=== PATIENT | female | born 1990 | race Caucasian/White ===

== ENCOUNTER 2022-04-27 09:41 | Emergency (ER) | payer OTHER, SELFPAY ==
[2022-04-27 10:50] VITALS: BP 141/77; PULSE 131; RESP 19; TEMP 37.8; O2SAT 99; BMI 36.8
--- NOTE | 2022-04-27 10:55 | EXP.UTC ---
Discharge Plan Disposition Patient Disposition: Home, Self-Care Condition: Good Prescriptions Prescriptions: New azithromycin [Zithromax] 250 mg tablet 250 mg PO UD DOSE PK Qty: 6 0RF Rx Instructions: Take two (2) tablets today, then one (1) tablet days #2 thru #5 benzonatate [benzonatate] 100 mg capsule 100 mg PO TIDP PRN (Reason: Cough) Qty: 30 0RF methylprednisolone 4 mg Tablets,Dose Pack 4 mg PO DIRECTED Qty: 21 0RF Referrals Follow up/Referrals: Kathy Aldana MD [Primary Care Provider] - See instructions Activity Restrictions/Add. Instructions Additional Instructions/Restrictions: Drink plenty of fluids. Take tylenol or ibuprofen for pain or fever. Take the medications as directed. Follow up with your regular doctor. GO TO THE ER FOR ANY WORSENING SYMPTOMS Clinical Impressions Clinical Impression: Acute bronchitis, Pharyngitis Stand Alone Forms Stand Alone Forms: Work/School Release Instructions Patient Instructions: DI for Pharyngitis/Tonsillopharyngitis -- Adult, DI for Acute Bronchitis Discharge ED Provider: Americo Max [facility] General Stated complaint: sore throat Time Seen by Provider: 04/27/22 10:55 History of Present Illness Provider Complaint: She states that for the past 2 days she has had worsening sinus congestion, chills, low grade fever and a cough. Related Data Previous Rx's Medication Instructions Recorded azithromycin 250 mg tablet 250 mg PO UD DOSE PK #6 tabs 04/27/22 (Zithromax) benzonatate 100 mg capsule 100 mg PO TIDP PRN Cough #30 caps 04/27/22 methylprednisolone 4 mg tablets in 4 mg PO DIRECTED #21 tabs 04/27/22 a dose pack Allergies Allergy/AdvReac Type Severity Reaction Status Date / Time tetracycline Allergy Verified 04/27/22 11:50 [facility] Disclaimer: The information contained in this section may have been updated after the patient was seen, as this information can be updated by other users. Social History Smoking Status: Never smoker alcohol intake: never current occupational status: employed Travel in the last 8 weeks: None ROS Obtained: Yes All systems reviewed & no additional complaints except as documented Constitutional Constitutional: Reports chills and Reports fever(s) Eyes Eyes: Denies eye discharge ENT Ears, Nose, Mouth, and Throat: Reports as per HPI Cardiovascular Cardiovascular: Denies chest pain Respiratory Respiratory: Denies chest congestion and Reports cough Gastrointestinal Gastrointestingal: Reports nausea; Denies abdominal pain, constipation, cramping, diarrhea or vomiting Musculoskeletal Musculoskeletal: Denies arthralgias Integumentary/Breasts Skin/Breast: Denies rash Neurologic Neurologic: Denies paresthesias Physical Exam General General appearance: alert and in no apparent distress Head Head exam: atraumatic, normocephalic and normal inspection Eye Eye exam: Present normal appearance, PERRL and EOMI ENT ENT exam: Present mucous membranes moist and normal external ear exam Expanded ENT Exam TM/Canal exam: Bilateral TM: erythema and bulging Nose exam: Absent sinus tenderness Mouth exam: Present normal external inspection; Absent drooling Teeth exam: Present normal inspection Throat exam: Present tonsillar erythema, tonsillomegaly and tonsillar exudate Neck Neck exam: Present normal inspection, full ROM and trachea midline; Absent tenderness, meningismus or lymphadenopathy Chest Chest inspection: Present normal inspection and symmetric chest wall rise; Absent tenderness Respiratory Respiratory exam: Present normal lung sounds bilaterally; Absent respiratory distress, wheezes or stridor Cardiovascular Cardiovascular exam: Present regular rate and normal rhythm; Absent systolic murmur or diastolic murmur Abdominal Exam Abdominal exam: Present soft and normal bowel sounds; Absent distention, tenderness, guarding,
[2022-04-27 11:20] LABS: UTC Strep Screen (Rapid) Negative (Negative)
[2022-04-27 11:47] LABS: UTC Influenza A Antigen Negative (Negative); UTC Influenza B Antigen Negative (Negative)
[2022-04-27 12:00] VITALS: BP 141/77; PULSE 131; RESP 19; TEMP 37.8; O2SAT 99
== END 2022-04-27 12:00 | disposition home or self-care (01) ==
PROVIDERS: Emergency Provider Nurse Practitioner Family; PCP Family Medicine
DX: J20.9 Acute bronchitis, unspecified (principal)
CPT/HCPCS: 87804; 87880; 99212; 99213; G0463

== ENCOUNTER → 2023-03-26 16:35 | Outpatient (CLI) | payer OTHER, SELFPAY ==
[2023-03-26 17:30] LABS: Basophils % 0.4 % (0.1-2.0); Eosinophils # 0.3 K/mm3 (0.0-0.4); Eosinophils % 2.9 % (0.1-12.0); Hematocrit 37.4 % (37.0-47.0); Hemoglobin 12.2 g/dL (12.2-16.2); Lymphocytes # 2.1 K/mm3 (0.7-4.5); Lymphocytes % 23.3 % (10-50); Mean Corpuscular HGB Conc 32.5 g/dL (31.8-35.4); Mean Corpuscular Hemoglobin 26.1 pg (27.0-31.2); Mean Corpuscular Volume 80.4 fl (81-99); Mean Platelet Volume 8.3 fl (7.4-10.4); Monocytes # 0.4 K/mm3 (0.1-1.0); Monocytes % 4.7 % (1.7-9.3); Neutrophils # 6.2 K/mm3 (1.8-7.8); Neutrophils % 68.6 % (37.0-80.0); Platelet Count 562 K/mm3 (142-424); Red Blood Count 4.65 M/mm3 (4.20-5.40); Red Cell Distribution Width 15.8 % (11.5-17.5)
[2023-03-26 18:21] LABS: Hemoglobin A1C 6.2 % (4.0-6.0)
[2023-03-26 18:43] LABS: Alanine Aminotransferase 52 U/L (12-78); Albumin Level 4.3 g/dl (3.5-5.0); Albumin/Globulin Ratio 1.3 (1.1-1.8); Alkaline Phosphatase 117 U/L (38-126); Anion Gap 11.4 mEq/L (5-15); Aspartate Amino Transferase 42 U/L (14-36); Bilirubin,Total 0.4 mg/dl (0.2-1.3); Blood Urea Nitrogen 14 mg/dl (7-17); Carbon Dioxide 31 mmol/L (22.0-30.0); Chloride 96 mmol/L (98-107); Chol/HDL Ratio 6.4 (1-3.5); Cholesterol 290 mg/dl (140-200); Estimated Glomerular Filt Rate 96 ml/min (>60); GFR (African American) 117 ML/MIN (>60); Globulin 3.2 g/dL (1.3-3.2); Glucose 67 mg/dl (74-100); HDL Cholesterol 45 mg/dl (40-60); Potassium 4.4 mmoL/L (3.5-5.1); Sodium 134 mmol/L (136-145); Total Protein,Serum 7.5 g/dl (6.3-8.2); Triglycerides 359 mg/dl (30-150); VLDL Cholesterol 72 mg/dL (0-40)
[2023-03-26 18:54] LABS: Direct LDL Cholesterol 168.99 mg/dL (100-129)
== END ==
PROVIDERS: PCP Internal Medicine; Visit Provider Internal Medicine
DX: I10 Essential (primary) hypertension (principal); R73.02 Impaired glucose tolerance (oral); E78.5 Hyperlipidemia, unspecified
CPT/HCPCS: 80053; 80061; 83036; 85025

== ENCOUNTER 2023-04-18 18:41 | Emergency (ER) | payer OTHER, SELFPAY ==
[2023-04-18 19:28] VITALS: BP 128/86; PULSE 78; RESP 22; TEMP 37; O2SAT 96; BMI 41.8
--- NOTE | 2023-04-18 19:41 | EXP.UTC ---
Discharge Plan Disposition Patient Disposition: Home, Self-Care Condition: Good Prescriptions Prescriptions: New ondansetron 4 mg tablet,disintegrating 4 mg PO Q8H PRN (Reason: nausea and vomiting) Qty: 10 0RF No Action azithromycin [Zithromax] 250 mg tablet 250 mg PO UD DOSE PK Qty: 6 0RF Rx Instructions: Take two (2) tablets today, then one (1) tablet days #2 thru #5 benzonatate [benzonatate] 100 mg capsule 100 mg PO TIDP PRN (Reason: Cough) Qty: 30 0RF methylprednisolone 4 mg Tablets,Dose Pack 4 mg PO DIRECTED Qty: 21 0RF Referrals Follow up/Referrals: Wong Smith MD [Primary Care Provider] - See instructions Activity Restrictions/Add. Instructions Additional Instructions/Restrictions: Drink extra fluids with and between meals. If you have difficulty drinking, try very small amounts of water or suck on ice chips. ? Avoid fruit juices, as these do not replace minerals and can actually increase diarrhea. ? Children and adults can use sports drinks to replenish electrolytes. Younger children and infants should use products formulated for children, like oral rehydration solutions. ? Eat food in small amounts and let your stomach recover. ? Get lots of rest. You may feel tired or weak. ? No greasy or fried foods for the next 24-48 hours BRAT diet Bananas Rice Apples and [place] ? Make sure to drink plenty of liquids ? Return if needed ? Straight to ER if any life threatening symptoms ? Zofran as prescribed ? You was given an outpatient order for diarrhea panel, please collect specimen and bring back to outpatient lab then call back to the [facility] or follow up with family doctor for results ? Follow up with family doctor in the next 48-72 hours if no improvement or any worsening of symptoms *Monitor Temp, Over the counter Motrin or Tylenol as directed/as needed Tylenol every 4 hours and Motrin every 6 hours (as long as your family doctor has told you that you can take it) for fever or pain. and straight to ER if unable to lower temp less than 101.0 after medication given *Sleep elevated *Humidifier/Vaporizer Follow up IMMEDIATELY for new or worsening symptoms or no Noticeable improvement over the next 48-72 hours. 911 for difficulty breathing or swallowing You were tested for today for ?Upper Respiratory Panel with COVID19 your test result should be back in the next 24hours, you may check your results on the [facility] if you are COVID positive then you must Quarantine for 5 days Clinical Impressions Clinical Impression: Viral syndrome Stand Alone Forms Stand Alone Forms: Work/School Release Instructions Patient Instructions: DI for Viral Syndrome Discharge ED Provider: Lissett Davis [facility] General Stated complaint: upset stomach, diarrhea, vomiting Source of Information: Patient Time Seen by Provider: 04/18/23 19:41 Description of Symptoms (Recalled from Triage Doc. by RN): pt states that she woke up yesterday morning with body aches and chills which then led to a fever and diarrhea today HEENT Symptoms (Recalled from RN notes): Yes Resp Symptoms (Recalled from RN notes): Yes Skin Symptoms (Recalled from RN notes): No MS Symptoms (Recalled from RN notes): No Functional Status (Recalled from RN notes): wnl History of Present Illness Provider Complaint: Patient states that she started feeling bad yesterday with body aches, chills and feeling feverish States that today she has contiued with the body aches, chills and also had some diarrhea and N/V States that she feels like she may have the flu or something Related Data Previous Rx's Medication Instructions Recorded azithromycin 250 mg tablet 250 mg PO UD DOSE PK #6 tabs 04/27/22 (Zithromax) benzonatate 100 mg capsule 100 mg PO TIDP PRN Cough #30 caps 04/27/22 methylprednisolone 4 mg tablets in 4 mg PO DIRECTED #21 tabs 04/27/22 a dose pack ondansetron 4 mg disintegrating 4 mg PO Q8H PRN nausea and 04/18/23 tablet vomiting #10 tabs Allergies Allergy/AdvReac Type Severity Reaction Status Date / Time tetracycline Allergy Verified 04/27/22 11:50 Worker's Comp Is this a Worker's Comp case?: No [facility] Disclaimer: The information contained in this section may have been updated after the patient was seen, as this information can be updated by other users. Social History (Updated 04/27/22 @ 15:59 by Americo Max APRN) Smoking Status: Never smoker alcohol intake: never current occupational status: employed Travel in the last 8 weeks: None ROS Obtained: Yes All systems reviewed & no additional complaints except as documented and Yes Systems reviewed as appropriate & no additional complaints except as documented Constitutional Constitutional: Reports system reviewed and no additional complaints, except as documented, Reports as per HPI, Reports body ache, Reports chills and Reports fever(s) ENT Ears, Nose, Mouth, and Throat: Reports system reviewed and no additional complaints, except as documented and Reports as per HPI Cardiovascular Cardiovascular: Reports system reviewed and no additional complaints, except as documented and Reports as per HPI Respiratory Respiratory: Reports system reviewed and no additional complaints, except as documented and Reports as per HPI Gastrointestinal Gastrointestingal: Reports system reviewed and no additional complaints, except as documented, as per HPI, diarrhea and nausea Musculoskeletal Musculoskeletal: Reports system reviewed and no additional complaints, except as documented and Reports as per HPI Physical Exam General General appearance: alert and in no apparent distress ENT ENT exam: Present mucous membranes moist Respiratory Respiratory exam: Present normal lung sounds bilaterally; Absent respiratory distress or wheezes Cardiovascular Cardiovascular exam: Present regular rate, normal rhythm and tachycardia Abdominal Exam Abdominal exam: Present soft and normal bowel sounds; Absent distention or tenderness Neurological Exam Neurological exam: Present alert, oriented X3 and normal gait Medical Decision Making Hai Inquiry Pt receiving controlled substance: No Hai was queried for this patient: No Vital Signs: 04/18/23 19:28 Temperature 98.6 F Temperature Source Oral Pulse Rate [Right Brachial] 78 Respiratory Rate 22 Blood Pressure [Right Arm] 128/86 Blood Pressure Mean [Right Arm] 100 Blood Pressure Source [Right Arm] Automatic Cuff Blood Pressure Position [Right Arm] Sitting 02 Sat by Pulse Oximetry 119 H Lab Data Lab results reviewed: Yes I reviewed the patient's lab results. Medical Decision Narrative: Patient denies states that she just got off her period
[2023-04-18 19:47] LABS: UTC Influenza A Antigen Negative (Negative)
[2023-04-18 19:48] LABS: UTC Influenza B Antigen Negative (Negative)
[2023-04-18] MEDS: ONDANSETRON 4MG ODT 4 MG SL (19:57)
[2023-04-18 20:06] VITALS: BP 128/86; PULSE 78; RESP 22; TEMP 37; O2SAT 96
[2023-04-18 20:35] LABS: Adenovirus,PCR Not Detected (NotDetected); Coronavirus 19, PCR Not Detected (NotDetected); Coronavirus 229E Not Detected (NotDetected); Coronavirus NL63 Not Detected (NotDetected); Coronovirus HKU1,PCR Not Detected (NotDetected); Human Metapneumovirus Not Detected (NotDetected); Influenza A, PCR Not Detected (NotDetected); Influenza AH1, 2009 Not Detected (NotDetected); Influenza AH1, PCR Not Detected (NotDetected); Influenza AH3,PCR Not Detected (NotDetected); Influenza B, PCR Not Detected (NotDetected); Parainfluenza 1, PCR Not Detected (NotDetected); Parainfluenza 2, PCR Not Detected (NotDetected); Parainfluenza 3, PCR Not Detected (NotDetected); Parainfluenza 4, PCR Not Detected (NotDetected); Respiratory Syncytial Virus Not Detected (NotDetected); Rhinovirus/Enterovirus Not Detected (NotDetected)
[2023-04-19 07:48] LABS: Coronavirus OC43 Detected (NotDetected)
== END 2023-04-18 20:07 | disposition home or self-care (01) ==
PROVIDERS: Emergency Provider Nurse Practitioner; PCP Internal Medicine
DX: R11.2 Nausea with vomiting, unspecified (principal); B34.2 Coronavirus infection, unspecified; R19.7 Diarrhea, unspecified; R50.9 Fever, unspecified; M79.18 Myalgia, other site
CPT/HCPCS: 87581; 87632; 87635; 87798; 87804; 99212; 99214; G0463

== ENCOUNTER → 2023-06-25 15:46 | Outpatient (CLI) | payer OTHER, SELFPAY | LOC: SL 15:48 | PROVIDERS: PCP Internal Medicine; Visit Provider Internal Medicine | DX: G47.33 Obstructive sleep apnea (adult) (pediatric) (principal); G47.36 Sleep related hypoventilation in conditions classified elsewhere | CPT/HCPCS: G0399 ==

== ENCOUNTER 2023-07-13 16:38 | Outpatient (CLI) | payer OTHER, SELFPAY ==
[2023-07-13 18:42] LABS: Chloride 100 mmol/L (98-107); Sodium 136 mmol/L (136-145)
[2023-07-13 18:43] LABS: Potassium 4.8 mmoL/L (3.5-5.1)
[2023-07-13 18:45] LABS: Blood Urea Nitrogen 13 mg/dl (7-17); Estimated Glomerular Filt Rate 82 ml/min (>60); GFR (African American) 99 ML/MIN (>60)
[2023-07-13 18:46] LABS: Anion Gap 9.8 mEq/L (5-15); Calcium 9.2 mg/dl (8.4-10.2); Carbon Dioxide 31 mmol/L (22.0-30.0); Glucose 159 mg/dl (74-100)
[2023-07-13 18:57] LABS: Free T4 (Free Thyroxine) 1.67 ng/dl (0.78-2.19)
[2023-07-13 19:11] LABS: Thyroid Stimulating Hormone 0.89 uIU/mL (0.465-4.68)
== END 2023-07-13 23:59 ==
LOC: LAB.DROPOF 16:41
PROVIDERS: PCP Internal Medicine; Visit Provider Internal Medicine
DX: R60.9 Edema, unspecified (principal); I10 Essential (primary) hypertension; G47.33 Obstructive sleep apnea (adult) (pediatric); N39.0 Urinary tract infection, site not specified
CPT/HCPCS: 80048; 84439; 84443

== ENCOUNTER 2023-07-23 12:55 | Outpatient (CLI) | payer OTHER, SELFPAY ==
--- NOTE | 2023-07-23 12:58 | CA_ITS ---
APPROVED REPORT EXAM: Comprehensive 2D, Doppler, and color-flow Echocardiogram Sr. Operations Manager: Jiamie Blount RDCS Ht: 5 ft 8 in Wt: 294lbs BSA: 2.41 BP: 128/86 mmHg Indications: EDEMA SOA TDS SECONDARY TO BODY HABITUS M-Mode Dimensions RVDd 2.56 cm (0.9-2.6) LA Diam 3.58 cm (1.9-4.0) LVDd 5.88 cm (3.5-5.7) LVDs 3.79 cm (3.5-5.7) IVSd 0.94 cm (0.6-1.1) PWd 0.64 cm (0.6-1.1) EF (Teich) 64.20% FS 35.50% EDV (Teich) 171.90 mL ESV (Teich) 61.60 mL LV Diastology E Decel Time 253 (160-240 msec) E/A Ratio 1.3 Mitral Valve MV E Max Rolf. 66.0 (40-130 cm/s) MV A Velocity 51.0 (40-130 cm/s) E/A Ratio 1.31 MV PHT 74.0 ms Left Ventricle The left ventricle is normal size. The left ventricular systolic function is normal. The left ventricular ejection fraction is within the normal range. There is normal left ventricular wall thickness. There is normal LV segmental wall motion. The left ventricular diastolic function is normal. LVEF is 60%. Right Ventricle The right ventricle is normal size. The right ventricular systolic function is normal. Atria The left atrium size is normal. The right atrium size is normal. The interatrial septum is not well-visualized. Aortic Valve The aortic valve opens well. There is no aortic valvular stenosis. No aortic regurgitation is present. Mitral Valve The mitral valve is normal in structure. No evidence of mitral valve stenosis. There is no mitral valve regurgitation noted. Tricuspid Valve The tricuspid valve leaflets are thin and pliable. Trace tricuspid regurgitation. There is insufficient TR jet to estimate RVSP. Pulmonic Valve The pulmonary valve is normal in structure. Trace pulmonic regurgitation. Great Vessels The aortic root is normal in size. The ascending aorta is normal in size. The IVC is not well-visualized. Pericardium There is no pericardial effusion. Other Information Study Quality: Technically Difficult Conclusion Technically difficult study due to poor acoustic windows. Normal biventricular systolic function. No significant valvular stenosis or regurgitation. The patient was noted to be tachycardic during the acquisition of the study images. Electronically signed by : Loreto Reyes MD 07/24/2023 10:31:28
== END 2023-07-23 23:59 ==
LOC: RT 12:56
PROVIDERS: PCP Internal Medicine; Visit Provider Internal Medicine
DX: R06.09 Other forms of dyspnea (principal); R60.9 Edema, unspecified; G47.33 Obstructive sleep apnea (adult) (pediatric)
CPT/HCPCS: 93306

== ENCOUNTER 2023-11-26 22:03 | Emergency (ER) | payer OTHER, SELFPAY ==
[2023-11-26 22:04] VITALS: BP 147/86; PULSE 92; RESP 16; TEMP 37; O2SAT 97; BMI 42.1
--- NOTE | 2023-11-26 22:16 | ED_ITS ---
<Statement entered by David Walters MD - 11/28/23 22:43> I was consulted by the KHURRAM, and we discussed the complexity of the problems being addressed. I approved the treatment and management plan for this patient's care in the emergency department, thus performing a substantive portion of the medical decision making. David Walters MD, LISSA, FACEP Discharge Plan Disposition Patient Disposition: Home, Self-Care Condition: Good Prescriptions Prescriptions: New levofloxacin 500 mg tablet 500 mg PO DAILY 5 Days Qty: 5 0RF cephalexin 500 mg capsule 500 mg PO BID 5 Days Qty: 10 0RF No Action pravastatin 20 mg tablet PO Patient Comments: TAKE 1 TABLET BY MOUTH ONCE DAILY escitalopram oxalate 10 mg tablet PO Patient Comments: TAKE 1 TABLET BY MOUTH ONCE DAILY omeprazole 20 mg capsule,delayed release(DR/EC) PO Patient Comments: TAKE 1 CAPSULE BY MOUTH ONCE DAILY losartan 25 mg tablet PO Patient Comments: TAKE 1 TABLET BY MOUTH ONCE DAILY buspirone 5 mg tablet PO Patient Comments: TAKE 1 TABLET BY MOUTH THREE TIMES DAILY valacyclovir 1 gram tablet PO Patient Comments: TAKE 1 TABLET BY MOUTH ONCE DAILY cetirizine 10 mg tablet PO Patient Comments: TAKE 1 TABLET BY MOUTH ONCE DAILY furosemide 40 mg tablet 40 mg PO DAILY Qty: 30 2RF ondansetron 4 mg tablet,disintegrating 4 mg PO Q8H PRN (Reason: nausea and vomiting) Qty: 10 0RF Referrals Follow up/Referrals: Wong Smith MD [Primary Care Provider] - See instructions Cata Alonzo DPM [Staff Physician] - See instructions Activity Restrictions/Add. Instructions Additional Instructions/Restrictions: Please call in the morning to make an appointment with podiatry. Return to ER for any worsening signs or symptoms including fever chills increasing pain numbness tingling etc. Clinical Impressions Clinical Impression: Puncture wound Instructions Patient Instructions: DI for Puncture Wound Print Language Print Language: [place] Discharge ED Provider: David Walters General Adult HPI General Chief complaint: Wound/Laceration Stated complaint: AO 11/26/231944 stepped on suzanne nail left foot Time Seen by Provider: 11/26/23 22:29 History of Present Illness HPI narrative: She reportsPatient left foot injury. Patient stepped in a nail through her rubber soled shoe. She removed the nail herself. Some pain but no numbness tingling bleeding etc. Related Data Home Medications ?Medication ?Instructions ?Recorded ?Confirmed buspirone 5 mg tablet mg PO 10/03/23 cetirizine 10 mg tablet mg PO 10/03/23 escitalopram oxalate 10 mg tablet mg PO 10/03/23 losartan 25 mg tablet mg PO 10/03/23 omeprazole 20 mg capsule,delayed mg PO 10/03/23 release pravastatin 20 mg tablet mg PO 10/03/23 valacyclovir 1 gram tablet mg PO 10/03/23 Previous Rx's ?Medication ?Instructions ?Recorded ondansetron 4 mg disintegrating 4 mg PO Q8H PRN nausea and 04/18/23 tablet vomiting #10 tabs furosemide 40 mg tablet 40 mg PO DAILY #30 tabs 11/16/23 cephalexin 500 mg capsule 500 mg PO BID 5 days #10 caps 11/26/23 levofloxacin 500 mg tablet 500 mg PO DAILY 5 days #5 tabs 11/26/23 Allergies Allergy/AdvReac Type Severity Reaction Status Date / Time tetracycline Allergy Verified 10/03/23 16:05 [facility] Disclaimer: The information contained in this section may have been updated after the patient was seen, as this information can be updated by other users. Social History Smoking Status: Never smoker alcohol intake: never current occupational status: employed Travel in the last 8 weeks: None ROS Obtained: Yes Systems reviewed as appropriate & no additional complaints except as documented Physical Exam General General appearance: alert Respiratory Respiratory exam: Present normal lung sounds bilaterally Cardiovascular Cardiovascular exam: Present regular rate and normal rhythm Extremities Exam Extremities exam: Present normal inspection Expanded Lower Extremity Exam Left: Bottom foot image: 2 1. 2 2 punctures proximal to the MTP joint of the fourth toe. No edema or ecchymosis noted. Neurological Exam Neurological exam: Present alert and oriented X3 Lymphatic Lymphatic Findings: no adenopathy Medical Decision Making Hai Inquiry Pt receiving controlled substance: No Vital Signs: 11/26/23 22:04 Temperature 98.6 F Temperature Source Oral Pulse Rate [Left] 92 H Respiratory Rate 16 Blood Pressure [Right Arm] 147/86 H Blood Pressure Mean [Right Arm] 106 02 Sat by Pulse Oximetry 97 Oxygen Delivery Method Room Air Orders (Tests/Meds): ED MEDICATIONS Discontinued Medications Generic Name Dose Route Start Last Admin Trade Name Freq PRN Reason Stop Dose Admin Cephalexin HCl 500 mg 11/26/23 22:19 11/26/23 22:35 Cephalexin 500mg Capsule PO 11/26/23 22:20 500 mg ONCE ONE Administration Levofloxacin 500 mg 11/26/23 22:19 11/26/23 22:35 Levofloxacin 500mg Tab PO 11/26/23 22:20 500 mg ONCE ONE Administration Tetanus/Reduced Diphtheria/Acell Pertussis 0.5 ml 11/26/23 22:19 11/26/23 22:33 Tet/Diphth/Pert-Adult 0.5ml Syringe IM 11/26/23 22:20 0.5 ml .ONCE ONE Administration ORDERS Category Date Time Status Foot XR left 2 views [XR foot LT 2V] Stat Exams 11/26/23 22:19 Taken Medical Decision Narrative: In summary patient is a 33-year-old female who presents to the emergency department for evaluation of stepping on a nail. Patient is dynamically stable upon arrival, afebrile. Physical exam shows 2 puncture wounds on the plantar surface of her left foot just proximal to the fourth MTP joint. No bony deformity noted. Patient neurovascular tact distally. No ecchymosis noted. No edema. No erythema. Differential diagnosis includes simple puncture versus bony involvement. Initial workup will be conducted with plain film x-rays. Initial interventions include Keflex Levaquin p.o. Tdap. Initial workup reviewed by me and her informal review of her plain film x-rays by myself shows no acute bony involvement.. Given this patient is appropriate for discharge with follow-up with podiatry and prescriptions sent to her pharmacy for Levaquin and Keflex. Critical Care Critical Care Time Critical Care Time: No
--- NOTE | 2023-11-26 22:19 | XR_ITS ---
PROCEDURE INFORMATION: Exam: XR Left Foot Exam date and time: 11/26/2023 10:18 PM Age: 33 years old Clinical indication: Pain; Foot; Left; Additional info: Stepped on a nail TECHNIQUE: Imaging protocol: Radiologic exam of the left foot. Views: 1 or 2 views. COMPARISON: No relevant prior studies available. FINDINGS: Bones/joints: There is a plantar calcaneal enthesophyte. No acute osseous injury. Soft tissues: There is some soft tissue swelling. No radiopaque foreign body is seen. IMPRESSION: No radiopaque foreign body or acute osseous abnormality.
[2023-11-26] MEDS: TET/DIPHTH/PERT-ADULT 0.5ML SYRINGE 0.5 ML IM (22:33)
[2023-11-26] MEDS: levoFLOXacin 500MG TAB 500 MG PO (22:35)
[2023-11-26] MEDS: cephALEXin 500MG CAPSULE 500 MG PO (22:35)
[2023-11-26 23:24] VITALS: BP 119/57; PULSE 92; RESP 20; TEMP 36.7; O2SAT 98
== END 2023-11-26 23:25 | disposition home or self-care (01) ==
PROVIDERS: Emergency Provider Student in an Organized Health Care Education/Training Program; PCP Internal Medicine
DX: S91.332A Puncture wound without foreign body, left foot, initial encounter (principal); W45.0XXA Nail entering through skin, initial encounter; Z23 Encounter for immunization
CPT/HCPCS: 73620; 90471; 90715; 99283

== ENCOUNTER 2024-01-06 16:36 | Emergency (ER) | payer SELFPAY ==
[2024-01-06 17:45] VITALS: BP 141/73; PULSE 94; RESP 20; TEMP 37; O2SAT 96; BMI 42.4
--- NOTE | 2024-01-06 18:00 | EXP.UTC ---
Discharge Plan Disposition Patient Disposition: Home, Self-Care Condition: Good Prescriptions Prescriptions: New amoxicillin-pot clavulanate 875-125 mg Tablet 1 tab PO Q12H Qty: 14 0RF fluticasone propionate [Flonase Allergy Relief] 50 mcg/actuation spray,suspension 2 spray intranasal DAILY Qty: 16 0RF Rx Instructions: administer into each nostril daily No Action valacyclovir 1 gram tablet 1,000 mg PO DAILY Patient Comments: TAKE 1 TABLET BY MOUTH ONCE DAILY omeprazole 20 mg capsule,delayed release(DR/EC) 20 mg PO DAILY Patient Comments: TAKE 1 CAPSULE BY MOUTH ONCE DAILY pravastatin 20 mg tablet 20 mg PO DAILY Patient Comments: TAKE 1 TABLET BY MOUTH EVERY DAY AT BEDTIME escitalopram oxalate 10 mg tablet 10 mg PO DAILY Patient Comments: TAKE 1 TABLET BY MOUTH ONCE DAILY furosemide 40 mg tablet 40 mg PO DAILY Patient Comments: TAKE 1 TABLET BY MOUTH ONCE DAILY IN THE MORNING FOR FLUID buspirone 5 mg tablet 5 mg PO DAILY Patient Comments: TAKE 1 TABLET BY MOUTH THREE TIMES DAILY losartan 25 mg tablet 25 mg PO DAILY Patient Comments: TAKE 1 TABLET BY MOUTH ONCE DAILY hydrochlorothiazide 12.5 mg tablet 12.5 mg PO DAILY Patient Comments: TAKE 1 TABLET BY MOUTH ONCE DAILY Referrals Follow up/Referrals: Bruno Smith DO [Primary Care Provider] - See instructions Activity Restrictions/Add. Instructions Additional Instructions/Restrictions: *Monitor Temp, Over the counter Motrin or Tylenol as directed/as needed Tylenol every 4 hours and Motrin every 6 hours (as long as your family doctor has told you that you can take it) for fever or pain. and straight to ER if unable to lower temp less than 101.0 after medication given *Warm salt water gargles may help to soothe the throat *Throat Lozenges? *Warm fluids like tea with honey may help to soothe the throat? *Sleep elevated *Humidifier/Vaporizer *Flonase 2 sprays in each nostril daily but be aware that it may take 2-3 days before you notice improvement Follow up IMMEDIATELY for new or worsening symptoms or no Noticeable improvement over the next 48-72 hours. 911 for difficulty breathing or swallowing Clinical Impressions Clinical Impression: Sinusitis Instructions Patient Instructions: DI for Sinusitis, Sinusitis Print Language Print Language: [place] Discharge ED Provider: Lissett Davis [facility] [place] HPI General Stated complaint: cough,runny nose Mode of Arrival: Ambulatory Source of Information: Patient Limitations: No Limitations Time Seen by Provider: 01/06/24 17:50 Description of Symptoms (Recalled from Triage Doc. by RN): PATIENT C/O SINUS DRAINAGE, COUGH WITH MUCOUS, AND EAR PAIN/FULLNESS SINCE YESTERDAY MORNING HEENT Symptoms (Recalled from RN notes): Yes Resp Symptoms (Recalled from RN notes): Yes Skin Symptoms (Recalled from RN notes): No MS Symptoms (Recalled from RN notes): No Functional Status (Recalled from RN notes): WNL History of Present Illness Provider Complaint: Patient states that she has been having sinus pain and pressure for about week and yesterday she started having feeling of fullness in her ears, drainage in the back of her throat, and feeling of fullness in her ears States feels like she may have a bad sinus infection or ear infection Related Data Home Medications ?Medication ?Instructions ?Recorded ?Confirmed buspirone 5 mg tablet 5 mg PO DAILY 01/06/24 01/06/24 escitalopram oxalate 10 mg tablet 10 mg PO DAILY 01/06/24 01/06/24 furosemide 40 mg tablet 40 mg PO DAILY 01/06/24 01/06/24 hydrochlorothiazide 12.5 mg tablet 12.5 mg PO DAILY 01/06/24 01/06/24 losartan 25 mg tablet 25 mg PO DAILY 01/06/24 01/06/24 omeprazole 20 mg capsule,delayed 20 mg PO DAILY 01/06/24 01/06/24 release pravastatin 20 mg tablet 20 mg PO DAILY 01/06/24 01/06/24 valacyclovir 1 gram tablet 1,000 mg PO DAILY 01/06/24 01/06/24 Previous Rx's ?Medication ?Instructions ?Recorded amoxicillin 875 mg-potassium 1 tab PO Q12H #14 tabs 01/06/24 clavulanate 125 mg tablet fluticasone propionate 50 2 spray intranasal DAILY #16 grams 01/06/24 mcg/actuation nasal spray,suspension (Flonase Allergy Relief) Allergies Allergy/AdvReac Type Severity Reaction Status Date / Time tetracycline Allergy Verified 12/19/23 15:07 Worker's Comp Is this a Worker's Comp case?: No PFSH PFSH Disclaimer: The information contained in this section may have been updated after the patient was seen, as this information can be updated by other users. Medical History (Updated 01/06/24 @ 18:09 by Lissett Davis APRN) Torn meniscus Depression Anxiety Migraine Asthma Hyperlipidemia Hypertension Social History Smoking Status: Never smoker alcohol intake: never current occupational status: employed Travel in the last 8 weeks: None ROS Obtained: Yes All systems reviewed & no additional complaints except as documented and Yes Systems reviewed as appropriate & no additional complaints except as documented Constitutional Constitutional: Reports system reviewed and no additional complaints, except as documented and Reports as per HPI ENT Ears, Nose, Mouth, and Throat: Reports system reviewed and no additional complaints, except as documented, Reports as per HPI, Reports otalgia, Reports nasal congestion, Reports nasal discharge and Reports sore throat Cardiovascular Cardiovascular: Reports system reviewed and no additional complaints, except as documented and Reports as per HPI Respiratory Respiratory: Reports system reviewed and no additional complaints, except as documented and Reports as per HPI Gastrointestinal Gastrointestingal: Reports system reviewed and no additional complaints, except as documented and as per HPI Physical Exam General General appearance: alert and in no apparent distress ENT ENT exam: Present mucous membranes moist Expanded ENT Exam TM/Canal exam: Bilateral TM: bulging Nose exam: Present sinus tenderness Throat exam: Present other (PND noted) Respiratory Respiratory exam: Present normal lung sounds bilaterally; Absent respiratory distress or wheezes Cardiovascular Cardiovascular exam: Present regular rate, normal rhythm and normal heart sounds Neurological Exam Neurological exam: Present alert, oriented X3 and normal gait Medical Decision Making Hai Inquiry Pt receiving controlled substance: No Hai was queried for this patient: No Vital Signs: 01/06/24 17:45 Temperature 98.6 F Temperature Source Oral Pulse Rate [Left Brachial] 94 H Respiratory Rate 20 Blood Pressure [Left Arm] 141/73 H Blood Pressure Mean [Left Arm] 95 Blood Pressure Source [Left Arm] Automatic Cuff Blood Pressure Position [Left Arm] Sitting 02 Sat by Pulse Oximetry 96 Oxygen Delivery Method Room Air
[2024-01-06 18:10] VITALS: BP 141/73; PULSE 94; RESP 20; TEMP 37; O2SAT 96
== END 2024-01-06 18:14 | disposition home or self-care (01) ==
PROVIDERS: Emergency Provider Nurse Practitioner; PCP Family Medicine
DX: J01.90 Acute sinusitis, unspecified (principal); H92.03 Otalgia, bilateral; R09.82 Postnasal drip; R05.9 Cough, unspecified
CPT/HCPCS: 99212; 99214; G0463